=== PATIENT | female | born 1995 | race Caucasian/White ===

== ENCOUNTER 2021-08-04 00:31 | Emergency (ER) | payer MEDICAID, SELFPAY ==
[2021-08-04 00:53] VITALS: BP 122/81; PULSE 100; RESP 16; TEMP 36.8; O2SAT 98; BMI 24.2
--- NOTE | 2021-08-04 01:12 | ED_ITS ---
HPI - Extremity Injury (Upper) General: Chief Complaint: Extremity Injury, Lower Stated Complaint: Ankle Pain Time Seen by Provider: 08/04/21 00:37 Course Vital Signs: Vital signs: Vital Signs Temperature 98.2 F 08/04/21 00:53 Pulse Rate 100 08/04/21 00:53 Respiratory Rate 16 08/04/21 00:53 Blood Pressure 122/81 08/04/21 00:53 Pulse Oximetry 98 08/04/21 00:53 Discharge Plan Discharge Condition: Stable Coding Level of Care Code ED Transit Department Clerk for Jihan Mackey
--- NOTE | 2021-08-04 01:12 | XRR_ITS ---
PROCEDURE INFORMATION: Exam: XR Left Ankle Exam date and time: 08/04/2021 1:12 AM Age: 26 years old Clinical indication: Injury or trauma; Fall; Sprain or strain; Patient HX: Sustained twisting injury to left ankle going down stairs. ; Additional info: Twisted/pain/swelling TECHNIQUE: Imaging protocol: XR Left ankle. Views: 3 or more views. COMPARISON: No relevant prior studies available. FINDINGS: Bones/joints: There is no acute fracture or dislocation. If symptoms persist, follow-up imaging in several days may be useful to exclude an occult fracture. No other significant acute bone or joint abnormality. Soft tissues: Prominent soft tissue swelling over the lateral malleolus, and anteriorly. XR/XR ankle LT min 3V* [id number] IMPRESSION: No acute fracture or dislocation.
--- NOTE | 2021-08-04 01:14 | ED_ITS ---
HPI - Extremity Injury (Lower) General: Chief Complaint: Extremity Injury, Lower Stated Complaint: Ankle Pain Time Seen by Provider: 08/04/21 00:37 Source: patient Mode of arrival: wheelchair Limitations: no limitations History of Present Illness: Patient is a 26-year-old female presents to ED today with complaints of a left ankle injury that she sustained just prior to arrival after she was going up/down a flight of stairs and twisted her ankle. She complains of pain and swelling to her lateral ankle. She has no other injuries or concerns at this time. Patient states she is not able to bear we ight secondary to discomfort. MD complaint: ankle injury Onset (ago): hour(s) Injury: Left: ankle Place: home Relieving factors: immobilization Exacerbating factors: weight bearing, movement and palpation Associated symptoms: Reports inability to bear weight Other symptoms: none Review of Systems Musc: Reports: joint pain (L ankle) and joint swelling (L ankle) Neuro: Denies: numbness in extremities or sensory changes Physical Exam Const: COMMON NORMALS: no acute distress, average body habitus, patient oriented x3, no limitations, healthy appearing, alert and well nourished Extremity: GENERAL: Yes normal exam except as noted LEFT LOWER EXTREMITY: Yes ankle joint (TTP and swelling overlying L lateral malleolus; no obvious deformity noted) Left ankle: Yes neurovascular exam (normal) Neuro: COMMON NORMALS: patient oriented x3 SENSORIUM/ORIENTATION: Yes alert Course Vital Signs: Vital signs: Vital Signs Temperature 98.2 F 08/04/21 00:53 Pulse Rate 100 08/04/21 00:53 Respiratory Rate 16 08/04/21 00:53 Blood Pressure 122/81 08/04/21 00:53 Pulse Oximetry 98 08/04/21 00:53 MDM - Extremity Injury (Lower) Medical Decision Making XR negative. Discussed conservative/RICE therapy. PCP follow up in 1-2 wks for persistent pain. Imaging Data XR L ankle: My impression: NAD Discharge Plan Discharge Patient Disposition: Home Clinical Impression: Left ankle sprain Qualifiers: Encounter type: initial encounter Involved ligament of ankle: unspecified ligament Qualified Code(s): S93.402A - Sprain of unspecified ligament of left ankle, initial encounter Condition: Stable Discharge Orders: Discharge ED (Routine); Ordered 08/04/21 Ordered By: Venice Posey Patient Instructions: Ankle Sprain (ED), RICE Therapy Stand Alone Forms: Work/School Release Coding Level of Care Code ED Cold Type Composing Machine Operator for Chg Fwd Exam Expanded Problem Focused
== END 2021-08-04 01:55 | disposition home or self-care (01) ==
PROVIDERS: Emergency Provider Physician Assistant
DX: S93.402A Sprain of unspecified ligament of left ankle, initial encounter (principal); X50.1XXA Overexertion from prolonged static or awkward postures, initial encounter
CPT/HCPCS: 73610; 99283; E0114